=== PATIENT | male | born 1950 | race Caucasian/White ===

== ENCOUNTER 2017-04-28 14:01 | Inpatient (IN) ==
--- NOTE | 2017-04-28 14:10 | Emergency Department Note ---
Disposition Clinical Impression: Chest pain Qualifiers: Chest pain type: unspecified Qualified Code(s): R07.9 - Chest pain, unspecified Disposition: Admitted As Inpatient Condition: Fair Time of Disposition: 16:48 Chest Pain HPI - General Chief Complaint: ED Chest Pain Stated Complaint: CP Time Seen by Provider: 04/28/17 14:05 Source: patient Mode of arrival: EMS Limitations: no limitations Vital Signs Reviewed: Yes Nursing Notes Reviewed: Yes - History of Present Illness HPI Narrative: Patient is a 67-year-old male who presents to [facility] ED via EMS from the [place] [facility] facility for chief complaint of chest pain. States his symptoms started approximately 45 minutes ago. States it was like a sharp stabbing pain in his left arm that radiated down his arm. It then radiated into his left chest. Denies any nausea, vomiting, fever or chills. No diaphoresis. No difficulty breathing. Past medical history significant for CAD , hypertension, GERD. Patient does state he has had 3 prior heart attacks but no stents were placed at the time because they said he was "too old". Patient was given 2 baby aspirin and a nitroglycerin at the [place]. Pt complaint: chest pain Onset (ago): minute(s) Duration: constant Onset: during rest Pain Location: left chest Severity: moderate Quality: aching, sharp Pain Radiation: LUE Improves with: nothing Worsens with: palpation Associated symptoms: Reports: cough (With sputum production that is yellow). Denies: nausea, vomiting, diaphoresis, dyspnea, fever Treatments prior to arrival chest pain: aspirin, nitroglycerin - Related Data Home Medications Medication Instructions Recorded Confirmed Albuterol Sulfate [Albuterol 2 puff IH QID PRN 04/28/17 04/28/17 Inhaler] Ammonium Lactate [Luz-Hydrolac] 1 appl TP DAILY 04/28/17 04/28/17 Aspirin Enteric Coated [Aspirin EC] 81 mg PO DAILY 04/28/17 04/28/17 Atorvastatin [Lipitor] 40 mg PO HS 04/28/17 04/28/17 Budesonide/Formoterol 160/4.5 2 puff IH BIDR 04/28/17 04/28/17 [Symbicort 160/4.5] Calcipotriene [Dovonex] 1 appl TP BID 04/28/17 04/28/17 Clobetasol Propionate 0.05% 1 appl TP DAILY 04/28/17 04/28/17 [Temovate] Ergocalciferol (VITAMIN D2) 50,000 unit PO QWEEK 04/28/17 04/28/17 [Vitamin D2] Ipratropium/Albuterol Neb [Duoneb] 3 ml IH QID PRN 04/28/17 04/28/17 Ipratropium/Albuterol Sulfate 1 puff IH QID PRN 04/28/17 04/28/17 [Combivent Respimat Inhal [place]] Lidocaine 4% CRM (LMX) [Lmx 4] 1 appl TP BID 04/28/17 04/28/17 Lisinopril 2.5 mg PO DAILY 04/28/17 04/28/17 Metoprolol XL (24 HR) Succ [Toprol 25 mg PO DAILY 04/28/17 04/28/17 XL] Alvarez/Poly/Sonya OINT [Triple 1 appl TP DAILY 04/28/17 04/28/17 Antibiotic Ointment] Omeprazole [PriLOSEC] 40 mg PO BID 04/28/17 04/28/17 Pregabalin [Lyrica] 300 mg PO BID 04/28/17 04/28/17 Allergies Allergy/AdvReac Type Severity Reaction Status Date / Time haloperidol [From Haldol] AdvReac Seizure Verified 04/28/17 15:15 morphine AdvReac Difficulty Verified 04/28/17 15:15 Breathing All systems ED: reviewed and negative except as stated. Chest Pain PMH - Past Medical History Medical history: Reports: COPD, coronary artery disease, GERD, hypertension - Social History Smoking Status: Current every day smoker Smokeless Tobacco Status: No Physical Exam - General Limitations: no limitations General appearance: alert, anxious - Head Head exam: atraumatic, normocephalic, normal inspection - Eye Eye exam: Present: normal appearance, PERRL, EOMI - ENT ENT exam: normal exam, normal oropharynx, mucous membranes moist - Neck Neck exam: Present: normal inspection, full ROM, trachea midline - Chest Chest inspection: Present: normal inspection, symmetric chest wall rise, tenderness (To palpation in left chest) - Respiratory Respiratory exam: Present: normal lung sounds bilaterally - Cardiovascular Cardiovascular exam: Present: regular rate, normal rhythm, normal heart sounds - Abdominal Exam Abdominal exam: Present: soft, Non-Tender. Absent: tenderness, distention, guarding, rebound, rigidity - Extremities Exam Extremities exam: Present: normal inspection, full ROM. Absent: tenderness, pedal edema - Back Exam Back exam: Present: normal inspection - Neurological Exam Neurological exam: Present: alert - Psychiatric Psychiatric exam: Present: normal affect, normal mood - Skin Skin exam: Present: warm, dry, intact, normal color Course Course Narrative: Patient seen and examined. Chest pain onset approximately 45 minutes ago. No acute distress. Vital signs stable. EKG shows prior inferior [place]. No ST elevation or depression. We will do cardiopulmonary workup. - Reevaluation(s) Reevaluation #1: Patient's labwork unremarkable. BNP is mildly elevated. His chest x-ray and rest sounds are clear bilaterally. Patient appears very comfortable at this time. Still complaining of shoulder pain. We will give a shot of Toradol. This pain is completely reproducible, we feel this is more likely musculoskeletal pain. We will repeat a troponin at 4 hours Time: 15:21 Reevaluation #2: Patient's pain not relieved by the Toradol. Complaining of worsening chest pain that goes up the neck. Repeat EKG does not show any worsening signs of ST elevation or depression. This time, we will go ahead and admit for chest pain, rule out ACS. I spoke with hospitalist who has accepted patient for admission. Time: 16:47 Vital Signs Temperature 97.6 F 04/28/17 14:02 Pulse Rate 81 04/28/17 14:02 Respiratory Rate 20 04/28/17 14:02 Blood Pressure 131/83 04/28/17 14:02 O2 Sat by Pulse Oximetry 97 04/28/17 14:02 Temperature 97.6 F 04/28/17 14:02 Pulse Rate 68 04/28/17 16:29 Respiratory Rate 16 04/28/17 16:29 Blood Pressure 141/86 04/28/17 16:29 O2 Sat by Pulse Oximetry 96 04/28/17 16:29 Oxygen Delivery Oxygen Delivery Nasal Cannula Chest Pain - Medical Records Medical records reviewed: Yes I reviewed the patient's medical records. - Lab Data Lab results reviewed: Yes I reviewed the patient's lab results. Result diagrams: 04/28/17 14:20 04/28/17 14:20 Lab Results 04/28/17 04/28/17 04/28/17 Range/Units 14:20 14:20 14:20 WBC 8.6 (4.3-11.1) K/mcL RBC 5.27 (4.19-5.50) M/mcL Hgb 10.2 L (12.9-16.9) g/dL Hct 36.9 L (37.5-50.1) % MCV 70.0 L (83.0-100.0) fL MCH 19.4 L (28.0-33.3) pg MCHC 27.6 L (31.6-35.5) g/dL RDW 21.5 H (11.5-14.5) % Plt Count 348 (140-400) K/mcL MPV 9.4 (9.4-12.4) fL Immature Gran % 0.3 (0-4) % Seg Neutrophils % 63.3 % Lymphocytes % 22.0 % Monocytes % 9.7 % Eosinophils % 4.1 % Basophils % 0.6 % Neutrophils # 5.4 (1.6-8.9) K/mcL Lymphocytes # 1.9 (0.6-4.6) K/mcL Monocytes # 0.8 (0.0-1.3) K/mcL Eosinophils # 0.4 (0.0-0.6) K/mcL Basophils # 0.1 (0.0-0.2) K/mcL Platelet Estimate Normal (Normal) Hypochromasia Present A (Not Present) PT 11.5 (9.4-12.1) Seconds INR 1.1 APTT 30.6 (26.0-36.0) Seconds Sodium (136-145) mEq/L Potassium (3.5-4.5) mEq/L Chloride (98-109) mEq/L Carbon Dioxide (19-29) mEq/L BUN (8-26) mg/dL Creatinine (0.72-1.25) mg/dL Est GFR ( Amer) (> 60) Est GFR (Non-Af Amer) (> 60) BUN/Creatinine Ratio (6-26) Glucose (70-99) mg/dL Calculated Osmolality (280-300) Calcium (8.6-10.8) mg/dL Troponin I (0-0.03) ng/mL B-Natriuretic Peptide 156 H (0-100) pg/mL 04/28/17 04/28/17 Range/Units 14:20 14:20 WBC (4.3-11.1) K/mcL RBC (4.19-5.50) M/mcL Hgb (12.9-16.9) g/dL Hct (37.5-50.1) % MCV (83.0-100.0) fL MCH (28.0-33.3) pg MCHC (31.6-35.5) g/dL RDW (11.5-14.5) % Plt Count (140-400) K/mcL MPV (9.4-12.4) fL Immature Gran % (0-4) % Seg Neutrophils % % Lymphocytes % % Monocytes % % Eosinophils % % Basophils % % Neutrophils # (1.6-8.9) K/mcL Lymphocytes # (0.6-4.6) K/mcL Monocytes # (0.0-1.3) K/mcL Eosinophils # (0.0-0.6) K/mcL Basophils # (0.0-0.2) K/mcL Platelet Estimate (Normal) Hypochromasia (Not Present) PT (9.4-12.1) Seconds INR APTT (26.0-36.0) Seconds Sodium 138 (136-145) mEq/L Potassium 4.4 (3.5-4.5) mEq/L Chloride 107 (98-109) mEq/L Carbon Dioxide 23 (19-29) mEq/L BUN 21 (8-26) mg/dL Creatinine 0.95 (0.72-1.25) mg/dL Est GFR ( Amer) > 60 (> 60) Est GFR (Non-Af Amer) > 60 (> 60) BUN/Creatinine Ratio 22 (6-26) Glucose 135 H (70-99) mg/dL Calculated Osmolality 291 (280-300) Calcium 9.2 (8.6-10.8) mg/dL Troponin I 0.00 (0-0.03) ng/mL B-Natriuretic Peptide (0-100) pg/mL - Radiology Data Radiology results reviewed: Yes I reviewed the patient's radiology results. Chest X-Ray 04/28/17 14:05 IMPRESSION: 1. No acute cardiopulmonary process. 2. Mild emphysema. D/ / 04/28/2017 14:40:05 Lane Boykin MD / [email or web address] Interpreting Provider: Lane Boykin MD - EKG Data EKG attestation: Yes I reviewed and interpreted this EKG. EKG results narrative: EKG done at 1412 shows normal sinus rhythm with a rate of [address] elevation or depression. Prominent T waves noted in anterior leads. Normal axis. Prominent Q waves in leads 2, 3, aVF to suggest old inferior [place]. EKG done at 1626 shows normal sinus rhythm with a rate of [address] elevation or depression. Prominent Q waves noted in leads 2, 3, aVF. Normal axis. Heart Score - Score History: Slightly Suspicious EKG: Normal Age: 45-65 Risk Factors: 1-2 risk factors Troponin: Less than normal limit HEART Score Total: 2 Attestation Statement - Attestation Attestation: Patient was seen with resident physician. I reviewed the history, physical, assessment and plan, and agree with the findings. I also personally evaluated this patient and had [id number] time with this patient. 67-year-old male presents to the emergency department with left shoulder and arm pain and left chest pain started approximately 1 hour prior to arrival. Patient staying at the psychiatric area of the [facility], and he developed his symptoms. He notes that the pain is similar in nature to when he had an infection in his shoulder, but he did not have the chest pain at that time. He said the pain started the shoulder again developed into the chest type pain which is sharp in nature. Patient has a history of [place] in October. He said it was a sound mind he did not know that he had one. His complaint was of some shortness of breath and he thought he might of had pneumonia. He denies fevers or chills this time and no specific injury. I examination vital signs are stable. ENT is unremarkable. Heart and lungs are both normal. Patient's chest is tender to palpation which reproduces some of the symptoms as is his left shoulder. He does have a wound there which appears clean and intact. Abdomen is soft and nontender. Extremities unremarkable. Neurologically patient is intact. ED course we will do a initial workup for cardiac and pulmonary causes of his symptoms. We did give some initial thought to doing a four-hour troponin is many of his discomforts seem to be related to musculoskeletal issues. However during his stay the patient had another episode of left-sided chest pain that radiated up into his neck. A repeat EKG at that time much like the initial EKG did not show any acute ischemic changes however. Patient was treated with nitroglycerin on the emergency department. Because of his positive cardiac history and is continuation of pain as well as the changing of the type of pain. Patient will be admitted to the hospital for further evaluation and treatment. He remained hemodynamically stable while in the emergency department. The hospitalist was notified as the need for admission. I agree with the resident physician assessment and plan.
[2017-04-28 14:30] LABS: Basophils % 0.6 %; Hemoglobin 10.2 g/dL (12.9-16.9)
[2017-04-28 14:32] LABS: Basophils # 0.1 K/mcL (0.0-0.2); Eosinophils # 0.4 K/mcL (0.0-0.6); Eosinophils % 4.1 %; Hematocrit 36.9 % (37.5-50.1); Immature Granulocytes % 0.3 % (0-4); Lymphocytes # 1.9 K/mcL (0.6-4.6); Mean Corpuscular HGB Conc 27.6 g/dL (31.6-35.5); Mean Corpuscular Hemoglobin 19.4 pg (28.0-33.3); Mean Platelet Volume 9.4 fL (9.4-12.4); Monocytes # 0.8 K/mcL (0.0-1.3); Monocytes % 9.7 %; Neutrophils # 5.4 K/mcL (1.6-8.9); Platelet Count 348 K/mcL (140-400); Red Blood Count 5.27 M/mcL (4.19-5.50); Red Cell Distribution Width 21.5 % (11.5-14.5); Segmented Neutrophils % 63.3 %
[2017-04-28 14:41] LABS: INR 1.1; Prothrombin Time 11.5 Seconds (9.4-12.1)
[2017-04-28 14:44] LABS: Activated Partial Thrombo Time 30.6 Seconds (26.0-36.0)
[2017-04-28 14:45] LABS: BUN/Creatinine Ratio 22 (6-26); Blood Urea Nitrogen 21 mg/dL (8-26); Calcium 9.2 mg/dL (8.6-10.8); Carbon Dioxide 23 mEq/L (19-29); Chloride 107 mEq/L (98-109); Glucose 135 mg/dL (70-99); Osmolality,Calculated 291 (280-300); Potassium 4.4 mEq/L (3.5-4.5); Sodium 138 mEq/L (136-145); eGFR For African Americans > 60 (> 60); eGFR For Non-African Americans > 60 (> 60)
[2017-04-28 15:02] LABS: Hypochromasia Present (Not Present); Platelet Estimate Normal (Normal)
[2017-04-28] MEDS ORDERED: *HR* Morphine 2 MG/ML SYRINGE IVP ONE (15:05)
[2017-04-28] MEDS ORDERED: Ondansetron 4 MG/2 ML VIAL IVP ONE (15:05)
[2017-04-28] MEDS ORDERED: Ketorolac 15 MG/ML VIAL IVP ONE (15:19)
[2017-04-28] MEDS: Nitroglycerin 0.4 MG TAB.SUBL SL PRN (16:31)
[2017-04-28] MEDS ORDERED: Naloxone 0.4 MG/ML INJ IVP PRN (19:45)
[2017-04-28] MEDS ORDERED: Ondansetron 4 MG/2 ML VIAL IVP PRN (19:45)
--- NOTE | 2017-04-28 20:33 | Internal Med History&Physical ---
<Jacob Clark - Last Filed: 04/28/17 21:43> Date of Encounter: 04/28/17 Time of Encounter: 19:30 Assessment and Plan (1) Chest pain Current visit: Yes Status: Acute Patient presents with chief complaint of left-sided chest pain. Patient was transferred from the [facility] facility with CP symptoms that started while he was there. He describes pain as sharp, stabbing, intermittent pain that radiated to his left shoulder and down his left arm. Patient denies any accompanying diaphoresis or shortness of breath with CP. He states these symptoms are a recent onset for him. Echocardiogram ordered. Will consider cardiology consult and nuclear pharm stress test based on echocardiogram results. Continuous cardiac telemetry ordered. Nitroglycerin PRN. Continue aspirin therapy and patient's HTN medications. Qualifiers: Chest pain type: other chest pain Qualified Code(s): R07.89 - Other chest pain; R07.8 - Other chest pain (2) Suicidal ideation Current visit: Yes Status: Acute Patient presents with history of two suicide attempts with the most recent attempt being this past Saturday. Patient states that he was experiencing extremely bad back pain and wanted to kill himself. Patient states during examination that he no longer wants to kill himself at this time due to his daughter asking him not to. Sitter ordered. Psychiatric consult ordered. 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 Patient does not currently take any meds for psychiatric care and should be assessed for this need during the psychiatric consult. (3) Wound with infection determined by examination Current visit: Yes Status: Acute Patient presents with wound to left ventral forearm caused by suicide attempt last Saturday. also has wound on left hand near the vein of thumb. Wound on left ventral forearm appears infected. Wound care consult ordered. Blood cultures were ordered 2. IV vancomycin ordered. (4) COPD (chronic obstructive pulmonary disease) Current visit: Yes Status: Chronic Patient presents with history of chronic obstructive pulmonary disease. Will order supplemental O2 with titration if SPO2 less than 92%, continuous SPO2 monitoring, DuoNebs ordered every 4. Monitor patient and vital signs for respiratory decline. Qualifiers: COPD type: unspecified COPD Qualified Code(s): J44.9 - Chronic obstructive pulmonary disease, unspecified (5) GERD (gastroesophageal reflux disease) Current visit: Yes Status: Chronic Patient presents with history of chronic gastroesophageal reflux disease. IV Zofran ordered when necessary. IV Protonix 40 mg daily ordered. Qualifiers: Esophagitis presence: esophagitis presence not specified Qualified Code(s) : K21.9 - Gastro-esophageal reflux disease without esophagitis (6) HTN (hypertension) Current visit: Yes Status: Chronic Patient presents with history of chronic hypertension. Continue patient's lisinopril and Lopressor. Monitor patient and vital signs. Qualifiers: Hypertension type: essential hypertension Qualified Code(s): I10 - Essential (primary) hypertension (7) HLD (hyperlipidemia) Current visit: Yes Status: Chronic Patient presents with history of chronic hyperlipidemia. Continue patient's Lipitor. Lipid panel ordered. Qualifiers: Hyperlipidemia type: pure hypercholesterolemia Qualified Code(s): E78.00 - Pure hypercholesterolemia, unspecified; E78.0 - Pure hypercholesterolemia (8) DVT prophylaxis Current visit: Yes Status: Acute Patient placed on DVT prophylaxis to admission protocol and current bedrest status. Heparin 5,000 units SQ Q12 ordered. Internal Medicine - H&P: HPI Chief complaint: Chest pain radiating to left shoulder/arm Admitted From: Emergency Dept Plans for Post Hospital Care: Home History of present illness: Mr. Corado is a 67 year old male who presents from the ED with chief complaint of left-sided chest pain. Patient was transferred from the [place] psych facility with CP symptoms that started while he was there. He describes pain as sharp, stabbing, intermittent pain that radiated to his left shoulder and down his left arm. Patient denies any accompanying diaphoresis or shortness of breath with CP. He states these symptoms are a recent onset for him. Mr. Corado denies any recent illness, fever, chills, nausea, vomiting, generalized weakness, or SOB. He reports he had two previous angioplasty procedures with placement of 2 stents. Patient has history of COPD, tobacco abuse (he reports smoking 1 1/2 PPD), CAD, GERD, hypertension, hyperlipidemia, degenerative disc disease, marijuana use, anxiety/depression, and dissociative identity disorder (he reports having three personalities). He also reports having a cough for the past three months with yellow sputum production. Patient is currently afebrile and WBC is 8.6. Patient is at high risk due to multiple risk factors (HTN, HLD, CAD) and previous history of MN and will be placed as inpatient with orders for a psychiatric consult, sitter due to recent suicide attempt, echocardiogram, continuous cardiac telemetry, supplemental O2 with titration if SpO2 <92%, continuous SpO2 monitoring, falls precautions/up-with- assist/bed rest with bed side commode due to unsteadiness related to severe back pain. Patient's initial labs suggest iron deficiency anemia so iron panel ordered. Wound on left arm from suicide attempt on Saturday appears to be infected so orders placed for blood cultures x2, wound care consult, and IV antibiotics. DuoNebs ordered Q4 for COPD. We will continue patient's home medications. Patient to be monitored closely for further signs of suicidal ideation, cardiac event, and respiratory distress. Time spent with patient >50 minutes. Past Med Surg Social Fam HX - Past Medical History Source: patient Medical history: COPD, coronary artery disease, GERD, hyperlipidemia, hypertension, myocardial infarction Psychiatric history: anxiety, depression, prior suicide attempt, previous psychiatric hospitalization, other (Reports having dissociative identity disorder with three personalities) - Past Surgical History Surgical History: angioplasty/stent (x2), orthopedic, other (Left shoulder surgery) - Social History Smoking Status: Current every day smoker Packs per day: 1 1/2 PPD Smokeless Tobacco Status: No Alcohol use: occasionally Drug use: marijuana Occupational status: disabled Current living situation: Home - Independent Activity Level: Uses cane/walker Recent Out of Country Travel Within the Last 8 Weeks: No Exposure or Possible Exposure to Illness During Travel: No - Family History Mother Race: Family Member Ethnicity: Non- Living Status: Age at : 69 Cause of : HD Hx Family Cardiac Disorders: Yes (HD) Hx Family Musculoskeletal Disorders: Yes (Degenerative disc disease) Father Race: Family Member Ethnicity: Non- Living Status: Age at : 83 Cause of : HD Hx Family Cardiac Disorders: Yes (HD, HTN, HLD) Brother Race: Family Member Ethnicity: Non- Living Status: Cause of : Unknown Sister Race: Family Member Ethnicity: Non- Living Status: Age at : 40 Cause of : DM complications Hx Family Endocrine Disorder: Yes (DM) Internal Medicine - H&P: Meds Albuterol Sulfate [Albuterol Inhaler] 2 puff IH QID PRN 04/28/17 [History] Ammonium Lactate [Luz-Hydrolac] 1 appl TP DAILY 04/28/17 [History] Aspirin Enteric Coated [Aspirin EC] 81 mg PO DAILY 04/28/17 [History] Atorvastatin [Lipitor] 40 mg PO HS 04/28/17 [History] Budesonide/Formoterol 160/4.5 [Symbicort 160/4.5] 2 puff IH BIDR 04/28/17 [ History] Calcipotriene [Dovonex] 1 appl TP BID 04/28/17 [History] Clobetasol Propionate 0.05% [Temovate] 1 appl TP DAILY 04/28/17 [History] Ergocalciferol (VITAMIN D2) [Vitamin D2] 50,000 unit PO QWEEK 04/28/17 [History] Ipratropium/Albuterol Neb [Duoneb] 3 ml IH QID PRN 04/28/17 [History] Ipratropium/Albuterol Sulfate [Combivent Respimat Inhal [place]] 1 puff IH QID PRN 04/28/17 [History] Lidocaine 4% CRM (LMX) [Lmx 4] 1 appl TP BID 04/28/17 [History] Lisinopril 2.5 mg PO DAILY 04/28/17 [History] Metoprolol XL (24 HR) Succ [Toprol XL] 25 mg PO DAILY 04/28/17 [History] Alvarez/Poly/Sonya OINT [Triple Antibiotic Ointment] 1 appl TP DAILY 04/28/17 [History ] Omeprazole [PriLOSEC] 40 mg PO BID 04/28/17 [History] Pregabalin [Lyrica] 300 mg PO BID 04/28/17 [History] Allergies haloperidol [From Haldol] Adverse Reaction (Verified 04/28/17 15:15) Seizure morphine Adverse Reaction (Verified 04/28/17 15:15) Difficulty Breathing All Systems PM: A 10-system review of systems was performed and is negative for pertinent findings except as documented above in the HPI. - Constitutional Constitutional: no chills, no fever(s), no night sweats - EENT Eyes: no change in vision, no discharge, no pain, no photophobia Ears: no ear discharge, no ear pain, no tinnitus Nose, mouth and throat: no dysphagia, no nasal discharge, no neck pain, no sore throat - Breasts Breasts: as per HPI - Cardiovascular Cardiovascular ROS IM: as per HPI, chest pain - Respiratory Respiratory: as per HPI, cough, change in phlegm color - Gastrointestinal Gastrointestinal: no abdominal pain, no diarrhea, no hematemesis, no hematochezia, no melena, no nausea, no vomiting - Genitourinary Genitourinary ROS male: as per HPI, urinary incontinence - Musculoskeletal Musculoskeletal ROS IM: no numbness, no tingling - Integumentary Integumentary IM: as per HPI, other (Psoriatic lesions on UE, LE, stomach, and back) - Neurological Neurological ROS: no confusion, no convulsions, no focal weakness, no numbness, no tingling, no tremor(s) - Psychiatric Psychiatric: as per HPI, anxiety, depression, suicidal ideation - Endocrine Endocrine IM: as per HPI - Hematologic/Lymphatic Hematologic/Lymphatic: no easy bruising - Allergic/Immunologic Allergic/Immunologic: as per HPI - Constitutional Vitals: Temp Pulse Resp BP Pulse Ox 97.5 F L 62 15 132/80 94 04/28/17 19:04 04/28/17 19:04 04/28/17 19:04 04/28/17 19:04 04/28/17 19:04 General appearance: Present: cooperative, disheveled, A&O X 2, pleasant, no acute distress, answers questions appropriately - Head Head exam: Present: atraumatic, normocephalic - Eye Eye exam: Present: PERRL, conjuntiva pink, sclera anicteric Pupils: Present: PERRL - ENT ENT exam: Present: normal exam, normal external ear exam - Neck Neck exam general surgery: Present: supple, trachea midline. Absent: lymphadenopathy - Respiratory Respiratory exam: Present: CTAB. Absent: accessory muscle use, rales, rhonchi, wheezes - Cardiovascular Cardiovascular exam: Present: RRR, +S1, +S2. Absent: diastolic murmur, gallop, rubs, systolic murmur - GI/Abdominal GI/Abdominal exam: Present: normal bowel sounds, soft, no peritoneal signs. Absent: distended, tenderness - Rectal Rectal exam: Present: deferred - Additional comments: exam deferred. - Extremities Exam Extremities exam: Present: warm, radial pulses palpable and symetrical. Absent : calf tenderness, cyanotic, pedal edema - Back Exam Back exam: Present: normal inspection - Neurological Exam Neurological exam: Present: alert, reflexes normal, strengths equal and symetr throughout - Psychiatric Psychiatric exam: Present: normal affect, normal mood Additional comments: Patient states that he attempted suicide Saturday by cutting his left ventral forearm and vein located by his left thumb. Left forearm has several stitches and appears erythematous, edematous, and warm. Patient describes area as painful. - Skin Additional comments: Patient has psoriatic lesions on his UE, LE, stomach, and back. Internal Med - H&P Results - Labs CBC & Chem 7: 04/28/17 14:20 04/28/17 14:20 - EKG Data EKG shows normal: sinus rhythm - EKG Data EKG comments: 04/28/17 20:52 EKG dated 04/28/17 13:12:46 from the [place] shows sinus rhythm with inferior infarct , age undetermined. EKG dated 04/28/17 13:13:16 from the [place] shows sinus rhythm with occasional premature ventricular complexes, inferior infarct of undetermined age. EKG dated 04/28/17 14:12:55 from [place] shows sinus rhythm with inferior myocardial infarction, probably old. EKG dated 04/28/17 16:26:07 from [place] shows sinus rhythm with minimal voltage criteria for LVH, consider normal variant, inferior myocardial infarction ( probably old). - Diagnostic Studies Chest x-ray Additional comments: Impressions Chest X-Ray 04/28/17 14:05 IMPRESSION: 1. No acute cardiopulmonary process. 2. Mild emphysema. D/ / 04/28/2017 14:40:05 [address] Boykin MD / [email or web address] Interpreting Provider: Lane Boykin MD <Andry Whitten - Last Filed: 04/28/17 22:32> Date of Encounter: 04/28/17 Internal Medicine - H&P: HPI History of present illness: Mr. Corado is a 67 year old male All Systems PM: A 10-system review of systems was performed and is negative for pertinent findings except as documented above in the HPI. - Constitutional Vitals: Temp Pulse Resp BP Pulse Ox 97.5 F L 62 15 132/80 94 04/28/17 19:04 04/28/17 19:04 04/28/17 19:04 04/28/17 19:04 04/28/17 19:04 Internal Med - H&P Results - Labs CBC & Chem 7: 04/28/17 14:20 04/28/17 14:20 Labs: Cardiac Enzymes 04/28/17 Range/Units 20:32 Troponin I 0.01 (0-0.03) ng/mL - Attending Attestation I have seen and examined the patient around 8:15 PM. I have discussed about the patient with nurse practitioner Jacob Clark. I have reviewed the orders and the note. Patient is a 67-year-old male with a history of a COPD, coronary artery disease, hyperlipidemia, hypertension, GERD, anxiety, depression , prior suicide attempt and previous psych hospitalization. He presents to the ED with complaints of chest pain. He was transferred from the [place] psych facility with chest pain symptoms. Patient described the pain as sharp stabbing intermittent radiating to left shoulder and down his left arm. No other associated symptoms. Patient has had 2 stents placed in the past. Patient smokes about a pack and a half of cigarettes a day. EKG does not show any acute ST-T changes and troponin is negative. We will trend troponin and echocardiogram is pending. We will continue aspirin and statin. Patient apparently had a recent suicidal attempt and has been in the psych facility. He he seems to cut his left ventricle forearm. This seems infected. We will need IV antibiotics. Patient does not have any active suicidal ideation. Psych consult ordered. On examination patient is awake and alert. He is pleasant, not in any acute distress. Able to provide all history. No family members at bedside. Patient has been explained about his condition and plan of care. Understood and agreed. No unanswered questions. CODE STATUS - DO NOT RESUSCITATE DO NOT INTUBATE. Heart rate 62, blood pressure 132/80, O2 sat 94% on room air, heart S1-S2 positive, lungs bilateral good entry with no wheezing or crackles, abdomen soft nontender, extremities all pulses palpable no edema.
[2017-04-28] MEDS: Pantoprazole 40 MG VIAL IVP SCH (21:00)
[2017-04-28 21:30] LABS: Amphetamine Screen,Urine Negative ng/mL (Cutoff=1000); Barbiturate Screen,Urine Negative ng/mL (Cutoff=200); Benzodiazepines Screen,Urine Negative ng/mL (Cutoff=200); Cannabinoid Screen,Urine Negative ng/mL (Cutoff = 50); Cocaine Screen,Urine Negative ng/mL (Cutoff= 300); Opiate Screen,Urine Negative ng/mL (Cutoff=300); Phencyclidine Screen,Urine Negative ng/mL (Cutoff=25)
[2017-04-28] MEDS ORDERED: Ketorolac 15 MG/ML VIAL IVP PRN (21:41)
[2017-04-28] MEDS ORDERED: Vancomycin 750 MG in D5% in Water 250 ML IVPB SCH (22:00)
[2017-04-28] MEDS: Pregabalin 75 MG CAPSULE PO SCH (22:22)
[2017-04-28] MEDS: Vancomycin 1,250 MG in D5% in Water 250 ML IVPB SCH (22:24)
[2017-04-28] MEDS: Lidocaine 4% CREAM (LMX) 5 GM TP SCH (22:31)
[2017-04-28] MEDS: (Calcipotriene [Dovonex] 1 APPL) TP SCH (22:33)
[2017-04-28] MEDS: Ipratropium/Albuterol Neb 3 ML IH SCH (23:29)
[2017-04-28] MEDS: Budesonide/Formoterol 160/4.5 MDI IH SCH (23:29)
[2017-04-29] MEDS: Acetaminophen 325 MG TABLET PO PRN (01:03)
[2017-04-29] MEDS ORDERED: *HR* OxyCODONE/APAP 5/325 TABLET PO PRN (01:39)
[2017-04-29 03:34] LABS: Basophils % 0.3 %
[2017-04-29 03:36] LABS: Eosinophils # 0.3 K/mcL (0.0-0.6); Eosinophils % 2.3 %; Hematocrit 33.4 % (37.5-50.1); Hemoglobin 9.3 g/dL (12.9-16.9); Immature Granulocytes % 0.3 % (0-4); Lymphocytes # 1.4 K/mcL (0.6-4.6); Lymphocytes % 11.5 %; Mean Corpuscular HGB Conc 27.8 g/dL (31.6-35.5); Mean Corpuscular Hemoglobin 19.3 pg (28.0-33.3); Mean Corpuscular Volume 69.3 fL (83.0-100.0); Mean Platelet Volume 9.8 fL (9.4-12.4); Monocytes % 8.5 %; Neutrophils # 9.4 K/mcL (1.6-8.9); Platelet Count 323 K/mcL (140-400); Red Blood Count 4.82 M/mcL (4.19-5.50); Red Cell Distribution Width 21.2 % (11.5-14.5); Segmented Neutrophils % 77.1 %
[2017-04-29] MEDS: Nitroglycerin 0.4 MG TAB.SUBL SL PRN (03:38)
[2017-04-29 03:48] LABS: BUN/Creatinine Ratio 29 (6-26); Blood Urea Nitrogen 27 mg/dL (8-26); Calcium 8.9 mg/dL (8.6-10.8); Carbon Dioxide 24 mEq/L (19-29); Chloride 105 mEq/L (98-109); Cholesterol 121 mg/dL (< 200); Glucose 119 mg/dL (70-99); HDL Cholesterol 30 mg/dL (40-59); LDL Cholesterol,Calculated 65 mg/dL (0-99); Osmolality,Calculated 288 (280-300); Potassium 4.2 mEq/L (3.5-4.5); Sodium 136 mEq/L (136-145); Triglycerides 130 mg/dL (< 150); eGFR For African Americans > 60 (> 60); eGFR For Non-African Americans > 60 (> 60)
[2017-04-29] MEDS: Ipratropium/Albuterol Neb 3 ML IH SCH ×6 (04:01→23:13)
[2017-04-29 04:02] LABS: Anisocytosis 3+ (Not Present); Hypochromasia Present (Not Present); Macrocytosis Present (Not Present); Microcytosis Present (Not Present)
[2017-04-29 04:03] LABS: Large Platelets Present (Not Present); Platelet Estimate Normal (Normal)
[2017-04-29 04:33] LABS: % Iron Saturation 5 % (20-55); Iron 19 mcg/dL (65-175); Transferrin 255 mg/dL (174-364)
[2017-04-29] MEDS: *HR* Heparin 5,000 UNIT/ML VIAL SQ SCH ×2 (06:16→16:35)
[2017-04-29] MEDS: Budesonide/Formoterol 160/4.5 MDI IH SCH ×2 (08:00→19:34)
[2017-04-29] MEDS: Nicotine 14 MG PATCH.TD24 TD SCH (08:19)
[2017-04-29] MEDS: Pantoprazole 40 MG VIAL IVP SCH (08:20)
[2017-04-29] MEDS: (Calcipotriene [Dovonex] 1 APPL) TP SCH ×2 (08:20→20:31)
[2017-04-29] MEDS: Aspirin Enteric Coated 81 MG Tablet PO SCH (08:20)
[2017-04-29] MEDS: Metoprolol XL (24 HR) Succ 25 MG TAB.ER.24H PO SCH (08:20)
[2017-04-29] MEDS: Neosporin OINT 15 GM TUBE TP SCH (08:21)
[2017-04-29] MEDS: Ammonium Lactate 30 APPL/225 GM BOTTLE TP SCH (08:21)
[2017-04-29] MEDS: Lidocaine 4% CREAM (LMX) 5 GM TP SCH ×2 (08:21→20:31)
[2017-04-29] MEDS: Pregabalin 75 MG CAPSULE PO SCH ×2 (08:27→20:31)
[2017-04-29] MEDS: Vancomycin 1,250 MG in D5% in Water 250 ML IVPB SCH ×2 (10:00→23:32)
[2017-04-29] MEDS: *HR* OxyCODONE/APAP 5/325 TABLET PO PRN ×3 (10:01→23:32)
[2017-04-29] MEDS ORDERED: Regadenoson 0.4 MG/5 ML SYRINGE IVP ONE (12:04)
--- NOTE | 2017-04-29 13:03 | Internal Med Progress Note ---
<Roger Llamas - Last Filed: 04/29/17 13:00> Date of Encounter: 04/29/17 Time of Encounter: 13:01 - Assessment and plan (1) Chest pain Current Visit: Yes Status: Acute Assessment and plan: Patient is chest pain-free at this time. EKG is unremarkable, troponins as far been negative. We will obtain cardiac stress test in the morning. Qualifiers: Chest pain type: other chest pain Qualified Code(s): R07.89 - Other chest pain; R07.8 - Other chest pain (2) Suicidal ideation Current Visit: Yes Status: Acute Assessment and plan: Patient denies suicidal ideation at this time but did state that on Saturday he was suicidal and attempted by cutting himself on the forearm. Patient reports that he sees a psychiatrist at the [place] and will be following up with them soon. Psychiatry was consulted by the admitting team. (3) COPD (chronic obstructive pulmonary disease) Current Visit: Yes Status: Chronic Assessment and plan: Stable. No evidence of acute exacerbation. Continue home medications. Qualifiers: COPD type: unspecified COPD Qualified Code(s): J44.9 - Chronic obstructive pulmonary disease, unspecified (4) GERD (gastroesophageal reflux disease) Current Visit: Yes Status: Chronic Assessment and plan: Stable. Continue PPI. Qualifiers: Esophagitis presence: esophagitis presence not specified Qualified Code(s) : K21.9 - Gastro-esophageal reflux disease without esophagitis (5) HTN (hypertension) Current Visit: Yes Status: Chronic Assessment and plan: Blood pressure under good control. Continue home medications. Qualifiers: Hypertension type: essential hypertension Qualified Code(s): I10 - Essential (primary) hypertension (6) HLD (hyperlipidemia) Current Visit: Yes Status: Chronic Assessment and plan: Continue statin. Qualifiers: Hyperlipidemia type: pure hypercholesterolemia Qualified Code(s): E78.00 - Pure hypercholesterolemia, unspecified; E78.0 - Pure hypercholesterolemia (7) DVT prophylaxis Current Visit: Yes Status: Acute Assessment and plan: Heparin 5000 units subcutaneous twice a day. - Subjective Interval history: Patient seen and examined at bedside. Patient denies chest pain at this time. He denies shortness of breath, diaphoresis. Patient reports that he was feeling suicidal on Saturday but denies any thoughts of hurting himself right now. He did report an attempt by cutting his forearm. - Constitutional Vitals: Temp Pulse Resp BP Pulse Ox 97.7 F 58 16 124/76 94 04/29/17 08:46 04/29/17 08:46 04/29/17 08:46 04/29/17 08:46 04/29/17 08:46 General appearance: Present: cooperative, A&O X 3, pleasant, no acute distress, answers questions appropriately - Respiratory Respiratory exam: Present: CTAB. Absent: rales, rhonchi, wheezes - Cardiovascular Cardiovascular exam: Present: RRR. Absent: gallop, rubs, systolic murmur - GI/Abdominal GI/Abdominal exam: Present: normal bowel sounds, soft. Absent: distended, tenderness - Extremities Exam Extremities exam: Present: warm. Absent: pedal edema, tenderness - Neurological Exam Neurological exam: Present: alert, CN II-XII intact, oriented X3, no focal deficits - Psychiatric Psychiatric exam: Absent: homicidal ideation, suicidal ideation Internal Medicine: Result - Labs CBC & Chem 7: 04/29/17 02:37 04/29/17 02:37 Labs: Short CBC 04/29/17 Range/Units 02:37 WBC 12.2 H (4.3-11.1) K/mcL Hgb 9.3 L (12.9-16.9) g/dL Hct 33.4 L (37.5-50.1) % Plt Count 323 (140-400) K/mcL Neutrophils # 9.4 H (1.6-8.9) K/mcL BMP 04/29/17 02:37 Sodium 136 Potassium 4.2 Chloride 105 Carbon Dioxide 24 BUN 27 H Creatinine 0.93 Glucose 119 H Calcium 8.9 Cardiac Enzymes 04/28/17 04/29/17 Range/Units 20:32 02:37 Troponin I 0.01 0.01 (0-0.03) ng/mL - ABG Interpretation ABG results: PT/INR, D-dimer PT 11.5 Seconds (9.4-12.1) 04/28/17 14:20 Consult Discharge Plan - Plan Referrals: NO,PCP [Primary Care Provider] - <Paul Rogers P - Last Filed: 04/29/17 17:37> Date of Encounter: 04/29/17 - Constitutional Vitals: Temp Pulse Resp BP Pulse Ox 97.1 F L 62 16 111/67 96 04/29/17 15:43 04/29/17 15:43 04/29/17 16:08 04/29/17 15:43 04/29/17 16:08 Internal Medicine: Result - Labs CBC & Chem 7: 04/29/17 02:37 04/29/17 02:37 - ABG Interpretation ABG results: PT/INR, D-dimer PT 11.5 Seconds (9.4-12.1) 04/28/17 14:20 - Attending Attestation I examined this patient and my medical decision-making was reviewed with the TELEPHONE LINEWORKER/PA/Advanced Practice Nurse/Resident Physician. I agree with the documented findings, disposition and treatment plan as described except to the extent set forth below.
--- NOTE | 2017-04-29 13:36 | Electrocardiograph Report ---
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
--- NOTE | 2017-04-29 13:40 | Electrocardiograph Report ---
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
--- NOTE | 2017-04-29 15:13 | Electrocardiograph Report ---
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
--- NOTE | 2017-04-29 15:45 | Consult Note ---
Date of Encounter: 04/29/17 Time of Encounter: 15:10 Assessment & Recommendation (1) Suicidal ideation Current visit: Yes Status: Acute Assessment & Recommendation: 1. From psychiatric standpoint patient is not suicidal and can be discharged when medically stable 2. Psychiatric follow-up at the [facility] as scheduled. Thank you for consultation History of Present Illness Patient: new to practice Requesting Physician: Kim Gilbert CNP Reason for consult: Suicidal ideation History of present illness: Mr. Corado is a 67 year old male admitted to the hospital for evaluation treatment of chest pain in addition to COPD, GERD, hypertension and hyperlipidemia. Psychiatric consultation was requested to evaluate suicidal ideation reported by the patient in the emergency room. Patient is a and receive psychiatric treatment at the [facility] for the past several years , is followed by a psychiatrist and scheduled for an appointment later this week. Patient denied that he attempted suicide and he cut himself so he can be taken by hospital and gets treatment for his back pain and breathing problems. CC: Kim Gilbert CNP Past Med Surg Social Fam HX - Past Medical History Medical history: COPD, coronary artery disease, GERD, hyperlipidemia, hypertension, myocardial infarction - Past Psychiatric History Psychiatric history: Reports: depression, previous psychiatric hospitalization Past psychiatric history details: Psychiatric treatment at the [facility] inpatient and outpatient - Past Surgical History Surgical History: angioplasty/stent (x2), orthopedic, other (Left shoulder surgery) - Social History Smoking Status: Current every day smoker Smokeless Tobacco Status: No Alcohol use: occasionally Drug use: marijuana - Family History Mother Race: Family Member Ethnicity: Non- Living Status: Age at : 69 Cause of : HD Hx Family Cardiac Disorders: Yes (HD) Hx Family Musculoskeletal Disorders: Yes (Degenerative disc disease) Father Race: Family Member Ethnicity: Non- Living Status: Age at : 83 Cause of : HD Hx Family Cardiac Disorders: Yes (HD, HTN, HLD) Brother Race: Family Member Ethnicity: Non- Living Status: Cause of : Unknown Sister Race: Family Member Ethnicity: Non- Living Status: Age at : 40 Cause of : DM complications Hx Family Endocrine Disorder: Yes (DM) Medications & Allergies Albuterol Sulfate [Albuterol Inhaler] 2 puff IH QID PRN 04/28/17 [History] Ammonium Lactate [Luz-Hydrolac] 1 appl TP DAILY 04/28/17 [History] Aspirin Enteric Coated [Aspirin EC] 81 mg PO DAILY 04/28/17 [History] Atorvastatin [Lipitor] 40 mg PO HS 04/28/17 [History] Budesonide/Formoterol 160/4.5 [Symbicort 160/4.5] 2 puff IH BIDR 04/28/17 [ History] Calcipotriene [Dovonex] 1 appl TP BID 04/28/17 [History] Clobetasol Propionate 0.05% [Temovate] 1 appl TP DAILY 04/28/17 [History] Ergocalciferol (VITAMIN D2) [Vitamin D2] 50,000 unit PO QWEEK 04/28/17 [History] Ipratropium/Albuterol Neb [Duoneb] 3 ml IH QID PRN 04/28/17 [History] Ipratropium/Albuterol Sulfate [Combivent Respimat Inhal [place]] 1 puff IH QID PRN 04/28/17 [History] Lidocaine 4% CRM (LMX) [Lmx 4] 1 appl TP BID 04/28/17 [History] Lisinopril 2.5 mg PO DAILY 04/28/17 [History] Metoprolol XL (24 HR) Succ [Toprol XL] 25 mg PO DAILY 04/28/17 [History] Alvarez/Poly/Sonya OINT [Triple Antibiotic Ointment] 1 appl TP DAILY 04/28/17 [History ] Omeprazole [PriLOSEC] 40 mg PO BID 04/28/17 [History] Pregabalin [Lyrica] 300 mg PO BID 04/28/17 [History] Allergies haloperidol [From Haldol] Adverse Reaction (Verified 04/28/17 15:15) Seizure morphine Adverse Reaction (Verified 04/28/17 15:15) Difficulty Breathing Mental Status Exam Patient orientation: Yes Person, Yes Time, Yes Place Level of alertness: Alert Patient appearance: Appropriate, Unkempt, Disheveled, Malodorous, Bizarre Behavior: cooperative, anxious, distractible Psychomotor activity: Normal Eye contact: Fleeting Contact Mood description: Anxious Affect description: congruent with mood, euthymic Speech pattern: Normal rate, Normal rhythm, Normal tone Speech volume: Normal Thought process: Linear, Goal Oriented Thought content: No Suicidal ideation, No Homicidal ideation, No Overt delusions Perceptual disturbances: No Auditory hallucinations, No Visual hallucinations Attention span: Capable of Focused Attention Memory description: Grossly Intact Patient reliability: Reliable Historian Intelligence estimate: Average Judgment: Limited Insight: Partial Results - Vital Signs Vital signs: Temp Pulse Resp BP Pulse Ox 97.7 F 58 16 124/76 94 04/29/17 08:46 04/29/17 08:46 04/29/17 08:46 04/29/17 08:46 04/29/17 08:46 - Drug Levels and Toxicology Drug Levels and Toxicology: Drug Levels and Toxicity 04/28/17 21:00 Urine Opiates Screen Negative Ur Barbiturates Screen Negative Ur Phencyclidine Scrn Negative Ur Amphetamines Screen Negative U Benzodiazepines Scrn Negative Urine Cocaine Screen Negative U Marijuana (THC) Screen Negative - Labs Labs: Laboratory Last Values WBC 12.2 K/mcL (4.3-11.1) H 04/29/17 02:37 RBC 4.82 M/mcL (4.19-5.50) 04/29/17 02:37 Hgb 9.3 g/dL (12.9-16.9) L 04/29/17 02:37 Hct 33.4 % (37.5-50.1) L 04/29/17 02:37 MCV 69.3 fL (83.0-100.0) L 04/29/17 02:37 MCH 19.3 pg (28.0-33.3) L 04/29/17 02:37 MCHC 27.8 g/dL (31.6-35.5) L 04/29/17 02:37 RDW 21.2 % (11.5-14.5) H 04/29/17 02:37 Plt Count 323 K/mcL (140-400) 04/29/17 02:37 MPV 9.8 fL (9.4-12.4) 04/29/17 02:37 Immature Gran % 0.3 % (0-4) 04/29/17 02:37 Seg Neutrophils % 77.1 % 04/29/17 02:37 Lymphocytes % 11.5 % 04/29/17 02:37 Monocytes % 8.5 % 04/29/17 02:37 Eosinophils % 2.3 % 04/29/17 02:37 Basophils % 0.3 % 04/29/17 02:37 Neutrophils # 9.4 K/mcL (1.6-8.9) H 04/29/17 02:37 Lymphocytes # 1.4 K/mcL (0.6-4.6) 04/29/17 02:37 Monocytes # 1.0 K/mcL (0.0-1.3) 04/29/17 02:37 Eosinophils # 0.3 K/mcL (0.0-0.6) 04/29/17 02:37 Basophils # 0.0 K/mcL (0.0-0.2) 04/29/17 02:37 Platelet Estimate Normal (Normal) 04/29/17 02:37 Large Platelets Present (Not Present) A 04/29/17 02:37 Hypochromasia Present (Not Present) A 04/29/17 02:37 Anisocytosis 3+ (Not Present) A 04/29/17 02:37 Microcytosis Present (Not Present) A 04/29/17 02:37 Macrocytosis Present (Not Present) A 04/29/17 02:37 PT 11.5 Seconds (9.4-12.1) 04/28/17 14:20 INR 1.1 04/28/17 14:20 APTT 30.6 Seconds (26.0-36.0) 04/28/17 14:20 Sodium 136 mEq/L (136-145) 04/29/17 02:37 Potassium 4.2 mEq/L (3.5-4.5) 04/29/17 02:37 Chloride 105 mEq/L (98-109) 04/29/17 02:37 Carbon Dioxide 24 mEq/L (19-29) 04/29/17 02:37 BUN 27 mg/dL (8-26) H 04/29/17 02:37 Creatinine 0.93 mg/dL (0.72-1.25) 04/29/17 02:37 Est GFR ( Amer) > 60 (> 60) 04/29/17 02:37 Est GFR (Non-Af Amer) > 60 (> 60) 04/29/17 02:37 BUN/Creatinine Ratio 29 (6-26) H 04/29/17 02:37 Glucose 119 mg/dL (70-99) H 04/29/17 02:37 POC Glucose 160 (58-89) H 04/28/17 14:21 Calculated Osmolality 288 (280-300) 04/29/17 02:37 Lactic Acid 1.3 mmol/L (0.5-2.2) 04/29/17 10:12 Calcium 8.9 mg/dL (8.6-10.8) 04/29/17 02:37 Iron 19 mcg/dL (65-175) L 04/29/17 02:37 % Saturation 5 % (20-55) L 04/29/17 02:37 Transferrin 255 mg/dL (174-364) 04/29/17 02:37 Troponin I 0.01 ng/mL (0-0.03) 04/29/17 02:37 B-Natriuretic Peptide 156 pg/mL (0-100) H 04/28/17 14:20 Triglycerides 130 mg/dL (< 150) 04/29/17 02:37 Cholesterol 121 mg/dL (< 200) 04/29/17 02:37 LDL Cholesterol, Calc 65 mg/dL (0-99) 04/29/17 02:37 VLDL Cholesterol, Calc 26 mg/dL (< 31) 04/29/17 02:37 HDL Cholesterol 30 mg/dL (40-59) L 04/29/17 02:37 Cholesterol/HDL Ratio 4.0 (0-4.9) 04/29/17 02:37 Urine Opiates Screen Negative ng/mL (Ciqirk=301) 04/28/17 21:00 Ur Barbiturates Screen Negative ng/mL (Pytkne=592) 04/28/17 21:00 Ur Phencyclidine Scrn Negative ng/mL (Cutoff=25) 04/28/17 21:00 Ur Amphetamines Screen Negative ng/mL (Wvqyys=8274) 04/28/17 21:00 U Benzodiazepines Scrn Negative ng/mL (Xnqryw=930) 04/28/17 21:00 Urine Cocaine Screen Negative ng/mL (Cutoff= 300) 04/28/17 21:00 U Marijuana (THC) Screen Negative ng/mL (Cutoff = 50) 04/28/17 21:00 Consult Discharge Plan - Plan Referrals: NO,PCP [Primary Care Provider] -
[2017-04-30] MEDS: Acetaminophen 325 MG TABLET PO PRN ×2 (04:03→15:47)
[2017-04-30] MEDS: Ipratropium/Albuterol Neb 3 ML IH SCH ×6 (04:34→23:26)
[2017-04-30] MEDS: *HR* OxyCODONE/APAP 5/325 TABLET PO PRN ×3 (05:56→18:46)
[2017-04-30] MEDS: *HR* Heparin 5,000 UNIT/ML VIAL SQ SCH ×2 (05:57→17:40)
[2017-04-30] MEDS ORDERED: Regadenoson 0.4 MG/5 ML SYRINGE IVP ONE (06:14)
[2017-04-30] MEDS: Budesonide/Formoterol 160/4.5 MDI IH SCH ×2 (07:40→19:42)
[2017-04-30 08:32] LABS: BUN/Creatinine Ratio 19 (6-26); Blood Urea Nitrogen 17 mg/dL (8-26); Calcium 8.6 mg/dL (8.6-10.8); Carbon Dioxide 27 mEq/L (19-29); Chloride 104 mEq/L (98-109); Glucose 115 mg/dL (70-99); Osmolality,Calculated 286 (280-300); Potassium 4.3 mEq/L (3.5-4.5); Sodium 137 mEq/L (136-145); eGFR For African Americans > 60 (> 60); eGFR For Non-African Americans > 60 (> 60)
[2017-04-30 09:02] LABS: Basophils # 0.1 K/mcL (0.0-0.2); Basophils % 0.7 %; Eosinophils # 0.3 K/mcL (0.0-0.6); Eosinophils % 4.2 %; Hematocrit 31.7 % (37.5-50.1); Hemoglobin 8.8 g/dL (12.9-16.9); Immature Granulocytes % 0.3 % (0-4); Lymphocytes # 1.4 K/mcL (0.6-4.6); Lymphocytes % 19.9 %; Mean Corpuscular HGB Conc 27.8 g/dL (31.6-35.5); Mean Corpuscular Hemoglobin 19.3 pg (28.0-33.3); Mean Corpuscular Volume 69.7 fL (83.0-100.0); Mean Platelet Volume 10.2 fL (9.4-12.4); Monocytes # 0.9 K/mcL (0.0-1.3); Monocytes % 12.5 %; Neutrophils # 4.5 K/mcL (1.6-8.9); Platelet Count 311 K/mcL (140-400); Red Blood Count 4.55 M/mcL (4.19-5.50); Red Cell Distribution Width 21.2 % (11.5-14.5); Segmented Neutrophils % 62.4 %
[2017-04-30 10:25] LABS: Anisocytosis 1+ (Not Present); Hypochromasia Present (Not Present); Macrocytosis Present (Not Present); Microcytosis Present (Not Present)
[2017-04-30 10:26] LABS: Platelet Estimate Normal (Normal)
[2017-04-30] MEDS: Aspirin Enteric Coated 81 MG Tablet PO SCH (11:59)
[2017-04-30] MEDS: Pregabalin 75 MG CAPSULE PO SCH ×2 (11:59→22:01)
[2017-04-30] MEDS: Metoprolol XL (24 HR) Succ 25 MG TAB.ER.24H PO SCH (11:59)
[2017-04-30] MEDS: Nicotine 14 MG PATCH.TD24 TD SCH (12:00)
[2017-04-30] MEDS: Pantoprazole 40 MG VIAL IVP SCH (12:01)
[2017-04-30] MEDS: (Calcipotriene [Dovonex] 1 APPL) TP SCH (12:01)
[2017-04-30] MEDS: Vancomycin 1,250 MG in D5% in Water 250 ML IVPB SCH ×2 (13:36→22:08)
[2017-04-30] MEDS: Neosporin OINT 15 GM TUBE TP SCH (13:37)
[2017-04-30] MEDS: Ammonium Lactate 30 APPL/225 GM BOTTLE TP SCH (13:37)
[2017-04-30] MEDS: Lidocaine 4% CREAM (LMX) 5 GM TP SCH ×2 (13:37→22:12)
--- NOTE | 2017-04-30 13:45 | Discharge Summary ---
<Roger Llamas - Last Filed: 04/30/17 14:46> Date of Encounter: 04/30/17 Time of Encounter: 13:39 - Discharge Diagnosis (1) Chest pain Priority: Primary Status: Resolved Qualifiers: Chest pain type: other chest pain Qualified Code(s): R07.89 - Other chest pain; R07.8 - Other chest pain (2) Suicidal ideation Priority: Primary Status: Resolved (3) COPD (chronic obstructive pulmonary disease) Priority: Secondary Status: Chronic Qualifiers: COPD type: unspecified COPD Qualified Code(s): J44.9 - Chronic obstructive pulmonary disease, unspecified (4) GERD (gastroesophageal reflux disease) Priority: Secondary Status: Chronic Qualifiers: Esophagitis presence: esophagitis presence not specified Qualified Code(s) : K21.9 - Gastro-esophageal reflux disease without esophagitis (5) HTN (hypertension) Priority: Secondary Status: Chronic Qualifiers: Hypertension type: essential hypertension Qualified Code(s): I10 - Essential (primary) hypertension (6) HLD (hyperlipidemia) Priority: Secondary Status: Chronic Qualifiers: Hyperlipidemia type: pure hypercholesterolemia Qualified Code(s): E78.00 - Pure hypercholesterolemia, unspecified; E78.0 - Pure hypercholesterolemia (7) DVT prophylaxis Priority: Secondary Status: Inactive - Discharge Medications Home Medications: Albuterol Sulfate [Albuterol Inhaler] 2 puff IH QID PRN 04/28/17 [History] Ammonium Lactate [Luz-Hydrolac] 1 appl TP DAILY 04/28/17 [History] Aspirin Enteric Coated [Aspirin EC] 81 mg PO DAILY 04/28/17 [History] Atorvastatin [Lipitor] 40 mg PO HS 04/28/17 [History] Budesonide/Formoterol 160/4.5 [Symbicort 160/4.5] 2 puff IH BIDR 04/28/17 [ History] Calcipotriene [Dovonex] 1 appl TP BID 04/28/17 [History] Clobetasol Propionate 0.05% [Temovate] 1 appl TP DAILY 04/28/17 [History] Ergocalciferol (VITAMIN D2) [Vitamin D2] 50,000 unit PO QWEEK 04/28/17 [History] Ipratropium/Albuterol Neb [Duoneb] 3 ml IH QID PRN 04/28/17 [History] Ipratropium/Albuterol Sulfate [Combivent Respimat Inhal [place]] 1 puff IH QID PRN 04/28/17 [History] Lidocaine 4% CRM (LMX) [Lmx 4] 1 appl TP BID 04/28/17 [History] Lisinopril 2.5 mg PO DAILY 04/28/17 [History] Metoprolol XL (24 HR) Succ [Toprol Xl] 25 mg PO DAILY 04/28/17 [History] Alvarez/Poly/[place] OINT [Triple Antibiotic Ointment] 1 appl TP DAILY 04/28/17 [History ] Omeprazole [PriLOSEC] 40 mg PO BID 04/28/17 [History] Pregabalin [Lyrica] 300 mg PO BID 04/28/17 [History] Allergies/Adverse Reactions: Allergies haloperidol [From Haldol] Adverse Reaction (Verified 04/28/17 15:15) Seizure morphine Adverse Reaction (Verified 04/28/17 15:15) Difficulty Breathing - Notes to Outpatient Provider Patient had iron deficiency anemia noted on the stay. His Hemoccult stool was negative. We would recommend endoscopic evaluation as an outpatient. Date of admission: 04/29/17 15:44 Primary care physician: PCP WILLARD Discharging clinician: Roger Llamas Anticipated date of discharge: 04/30/17 - Patient Status Disposition: Transfer [facility] Condition: Fair Functional capacity at discharge: independent ambulation Overall status at discharge: patient is progressing back to baseline - Discharge Instructions Instructions: Chest Pain (DC), Chronic Obstructive Pulmonary Disease (DC), Chronic Hypertension (DC) Follow Up With: NO,PCP [Primary Care Provider] - Additional Instructions: [facility] Please continue your home medications. Please return for any new or worsening symptoms. - Diet and Activity Activity: increase activity as tolerated Diet: low fat, low cholesterol, low salt diet Interval History: Patient seen and examined at bedside. Patient complains of some mild chronic back pain. He denies chest pain. Denies thoughts to harm himself or others. Hospital course: Mr. Corado is a 67 year old male with history of coronary artery disease, COPD presented with chest pain. Patient states that the pain radiated to the left arm. Patient had no EKG changes and negative troponins. Patient underwent cardiac stress testing that was negative. Of note there were reports of the patient expressing suicidal thoughts. When I discussed this with the patient he said he did several days prior to arrival but not at this time. Patient was evaluated by psychiatry who felt he was not suicidal and was okay to discharge. Patient will be discharged home in stable condition. - Time Spent with Patient Total time spent providing and/or coordinating discharge services: - Constitutional Vitals: Temp Pulse Resp BP Pulse Ox 97.7 F 73 16 140/68 90 04/30/17 11:36 04/30/17 11:36 04/30/17 11:36 04/30/17 11:36 04/30/17 11:36 General appearance: Present: cooperative, A&O X 3, pleasant, no acute distress, answers questions appropriately - Respiratory Respiratory exam: Present: CTAB. Absent: rales, rhonchi, wheezes - Cardiovascular Cardiovascular exam: Present: RRR. Absent: gallop, rubs, systolic murmur - GI/Abdominal GI/Abdominal exam: Present: normal bowel sounds, soft. Absent: distended, tenderness - Extremities Exam Extremities exam: Present: pedal edema, warm. Absent: tenderness - Neurological Exam Neurological exam: Present: alert, CN II-XII intact, oriented X3, no focal deficits <Sue,Paul P - Last Filed: 05/01/17 17:19> Date of Encounter: 05/01/17 Procedures/tests Complete & Pending: Procedures Performed prior 72 hours Category Date Time Status CT head/brain wo con [CT] Stat Cat Scan 05/01/17 01:23 Draft Date of admission: 04/29/17 15:44 Primary care physician: PCP NO Consults: 04/30/17 15:59 Consult to Cardiology [CONS] Routine Comment: Consulting Provider: Cardiology Yumiko Reason for Consult: Positive stress test Call Completed: Yes Hospital course: Mr. Corado is a 67 year old male - Time Spent with Patient Total time spent providing and/or coordinating discharge services: - Constitutional Vitals: Temp Pulse Resp BP Pulse Ox 98.0 F 76 20 126/78 94 05/01/17 08:00 05/01/17 08:00 05/01/17 08:00 05/01/17 08:00 05/01/17 08:00 - Attending Attestation I examined this patient and my medical decision-making was reviewed with the HEALTH AND HUMAN PERFORMANCE PROFESSOR/PA/Advanced Practice Nurse/Resident Physician. I agree with the documented findings, disposition and treatment plan as described except to the extent set forth below. patient d/c today note started yesterday
[2017-04-30] MEDS: Nitroglycerin 0.4 MG TAB.SUBL SL PRN ×2 (15:43→16:13)
--- NOTE | 2017-04-30 15:51 | Nuclear Medicine Stress Report ---
Regadenoson Nuclear 2 day Name: Abdoul Corado Date of Study: 04/29/2017 Date: 1950 Ht: 73.0 in Medical Record#: [id number] Age: 67 Wt: 175.0 lb Gender: Male Order #: [id number] Location: [facility] Room: [facility] Supervising Provider: Emanuel Styles CNP Reading Physician: Carmen Brandt DO Ordering Physician: Kim Gilbert CNP Primary Care Physician: [facility] Stress Technologist: Rodrigo Silva, SECURITIES TRADER, [facility] Log Sorting Supervisor: Rosalba Whelan Indications: Chest Pain Impression: Perfusion imaging demonstrates infarct with madelyn-infarct ischemia involving the inferior and inferolateral camacho. Pharmacologic ECG was negative for ischemia at the level of heart rate achieved. Gated EF = 55%. The LV is mildly dilated. There is evidence of TID. Findings communicated to ordering provider. History: Hypertension Hypercholesteremia History of Smoking Stress Test Summary: Stress Test Type: Pharmacologic Regadenoson 0.4mg/5ml given IV Baseline Information: Initial Heart Rate: 65 Blood Pressure: 112/62 Stress Information: Stress Time: 4 min 00 sec Test Terminated Due to (primary): As per protocol Maximum Blood Pressure: 90/50 Maximum Heart Rate: 77 Percent Maximum Heart Rate Achieved: 50 Double Product: 6930 METS Reached: 1 Symptoms: Lightheadness Nuclear Summary: SPECT myocardial perfusion imaging using Tc99m Sestamibi given intravenously was performed at rest and following cardiac stress testing. The resting images were obtained following initial dose of 10.4 mCi. Following stress an additional dose of 30.2 mCi was given at peak exercise or 30 seconds post regadenoson infusion. Medication Given: Time Medication Dose Units Route Findings: Stress Note * Resting ECG demonstrated normal sinus rhythm with early repolarization. * Pharmacologic stress ECG is negative for ischemia at level of heart rate achieved. * No arrhythmias were noted during stress. * Patient had no chest pain during stress. Hemodynamic responses * Normal hemodynamic responses to pharmacologic stress. Study Quality * Technically challenging study due to body habitus. Left Ventricle * LVEDV = Mildly dilated. TID * There is transient ischemic dilatation. TID ratio * TID ratio = 1.46. Lung Uptake * There is no evidence of increase lung uptake. PERFUSION * There is small sized, fixed perfusion defect involving the basal inferior and inferolateral wall. Wall motion is abnormal in this area representing infarct. * During stress there may be worsening of perfusion in the mid to distal inferior wall and mid inferolateral wall representing madelyn-infarct ischemia. Gated EF % * Gated EF = 55%. Updated by Carmen Brandt on 04/30/2017 3:42:27 PM electronically signed on 04/30/2017 3:47:13 PM with status of Final
--- NOTE | 2017-04-30 16:12 | Event Note ---
<Roger Llamas - Last Filed: 04/30/17 16:10> Date of Encounter: 04/30/17 Time of Encounter: 16:10 Patient was admitted to be discharged today pending a negative stress test. Unfortunately patient's stress test came back positive for myocardial ischemia, so the discharge has been canceled. The cardiology team and they will evaluate him in the morning. Patient will be kept nothing by mouth at midnight. <Paul Rogers P - Last Filed: 04/30/17 17:36> Date of Encounter: 04/30/17 I examined this patient and my medical decision-making was reviewed with the SIGN HANGER/PA/Advanced Practice Nurse/Resident Physician. I agree with the documented findings, disposition and treatment plan as described except to the extent set forth below. Cardiology input appreciated
[2017-04-30] MEDS: Benzonatate 100 MG CAPSULE PO PRN ×2 (16:13→22:02)
[2017-05-01] MEDS: *HR* OxyCODONE/APAP 5/325 TABLET PO PRN ×3 (00:38→13:49)
[2017-05-01] MEDS: Acetaminophen 325 MG TABLET PO PRN (03:27)
[2017-05-01] MEDS: Ipratropium/Albuterol Neb 3 ML IH SCH ×3 (03:38→11:09)
[2017-05-01 05:16] LABS: Eosinophils % 4.6 %
[2017-05-01 05:17] LABS: Basophils # 0.1 K/mcL (0.0-0.2); Basophils % 0.7 %; Eosinophils # 0.3 K/mcL (0.0-0.6); Hematocrit 32.7 % (37.5-50.1); Hemoglobin 9.1 g/dL (12.9-16.9); Immature Granulocytes % 0.3 % (0-4); Lymphocytes # 1.5 K/mcL (0.6-4.6); Lymphocytes % 20.7 %; Mean Corpuscular HGB Conc 27.8 g/dL (31.6-35.5); Mean Corpuscular Hemoglobin 19.3 pg (28.0-33.3); Mean Corpuscular Volume 69.4 fL (83.0-100.0); Mean Platelet Volume 9.6 fL (9.4-12.4); Monocytes # 0.9 K/mcL (0.0-1.3); Monocytes % 11.9 %; Neutrophils # 4.5 K/mcL (1.6-8.9); Platelet Count 325 K/mcL (140-400); Red Blood Count 4.71 M/mcL (4.19-5.50); Red Cell Distribution Width 21.3 % (11.5-14.5); Segmented Neutrophils % 61.8 %
[2017-05-01 05:27] LABS: BUN/Creatinine Ratio 16 (6-26); Blood Urea Nitrogen 15 mg/dL (8-26); Calcium 8.9 mg/dL (8.6-10.8); Carbon Dioxide 25 mEq/L (19-29); Chloride 109 mEq/L (98-109); Glucose 129 mg/dL (70-99); Magnesium 2.1 mg/dL (1.6-2.6); Osmolality,Calculated 291 (280-300); Potassium 4.2 mEq/L (3.5-4.5); Sodium 139 mEq/L (136-145); eGFR For African Americans > 60 (> 60); eGFR For Non-African Americans > 60 (> 60)
[2017-05-01] MEDS: *HR* Heparin 5,000 UNIT/ML VIAL SQ SCH (06:31)
[2017-05-01 07:34] LABS: Anisocytosis 1+ (Not Present); Hypochromasia Present (Not Present); Large Platelets Present (Not Present); Macrocytosis Present (Not Present); Microcytosis Present (Not Present); Platelet Estimate Normal (Normal)
[2017-05-01] MEDS: Budesonide/Formoterol 160/4.5 MDI IH SCH (07:40)
[2017-05-01 08:00] VITALS: BP 126/78
--- NOTE | 2017-05-01 08:55 | Cardiology Consult Note ---
Date of Encounter: 05/01/17 Time of Encounter: 08:49 Assessment and Plan (1) Abnormal stress test Current Visit: Yes Status: Acute Stress test reviewed with patient. Perfusion imaging demonstrates infarct with madelyn-infarct ischemia involving the inferior and inferiolateral camacho. Gated EF 55%. There was evidence of TID. TTE shows EF 55%-60%, mild LVH, mild diastolic dysfunction. Normal RV size and function. Mild MR I discussed LHC vs medical management. D/t patient not wanting to care for himself and take his medications he is not a good candidate for LHC. He reports WA recently at [facility] and was also recommended for medical management due to psychosocial issues. Medical management is recommended. Continue asa, statin, and bb. Add imdur. Patient voices understanding of plan. Follows with [facility] in [place]. Recommend close out-pt f/u. (2) CAD (coronary artery disease) Current Visit: Yes Status: Acute Reports he does not take his medications. Discussed importance of compliance with medications. Follows with sourcing specialist in [place]. Qualifiers: Coronary Disease-Associated Artery/Lesion type: [place] artery [place] vs. transplanted heart: [place] heart Associated angina: with unstable angina Qualified Code(s): I25.110 - Atherosclerotic heart disease of [place] coronary artery with unstable angina pectoris (3) Chest pain Current Visit: Yes Status: Resolved Qualifiers: Chest pain type: other chest pain Qualified Code(s): R07.89 - Other chest pain; R07.8 - Other chest pain Discussion w patient/family: The assessment and plan as outlined above was discussed with the patient and/or family members who expressed understanding and agreement. All questions were answered. Thank you for involving us in the care of your patient. Please call with any questions. History of Present Illness Consult date: 05/01/17 Requesting physician: Roger Llamas Consult reason: Abnormal stress test Chief complaint: Left arm pain History of present illness: Mr. Corado is a 67 year old male who presented from the psychiatric unit at the [facility] when he developed chest pain. He was being treated after a suicide attempt. He c/o intermittent left shoulder and arm pain that occurred at rest. The pain was sharp and shooting down his left arm. He reports intermittent pain over the last three months. Admits to left arm pain with exertion that is relieved with rest. Denies SOB or palpitation. Denies nausea, vomiting, or diaphoresis. He reports a history of CAD s/p 4 [place] and multiple PCI. [facility] He also has a history of HTN, HLD, COPD, IV drug use and GERD. He reports multiple suicide attempts throughout his life d/t severe depression and PTSD. 2 recent suicide attempts. He currently has a laceration on his left arm from recent attempt. He says he did it because he could not get help for his back pain. 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 He states he will not take his cardiac medications because he doesn't care about life. Patient also states his psych medications make him want to hurt himself, hurt someone else. He denies wanting to hurt himself or others at this time. Past Med Surg Social Fam HX - Past Medical History Medical history: COPD, coronary artery disease, GERD, hyperlipidemia, hypertension, myocardial infarction Psychiatric history: depression, previous psychiatric hospitalization - Past Surgical History Surgical History: angioplasty/stent (x2), orthopedic, other (Left shoulder surgery) - Social History Smoking Status: Current every day smoker Packs per day: 1 1/2 PPD Smokeless Tobacco Status: No Alcohol use: occasionally Drug use: marijuana - Family History Mother Race: Family Member Ethnicity: Non- Living Status: Age at : 69 Cause of : HD Hx Family Cardiac Disorders: Yes (HD) Hx Family Musculoskeletal Disorders: Yes (Degenerative disc disease) Father Race: Family Member Ethnicity: Non- Living Status: Age at : 83 Cause of : HD Hx Family Cardiac Disorders: Yes (HD, HTN, HLD) Brother Race: Family Member Ethnicity: Non- Living Status: Cause of : Unknown Sister Race: Family Member Ethnicity: Non- Living Status: Age at : 40 Cause of : DM complications Hx Family Endocrine Disorder: Yes (DM) Medications and Allergies Albuterol Sulfate [Albuterol Inhaler] 2 puff IH QID PRN 04/28/17 [History] Ammonium Lactate [Luz-Hydrolac] 1 appl TP DAILY 04/28/17 [History] Aspirin Enteric Coated [Aspirin EC] 81 mg PO DAILY 04/28/17 [History] Atorvastatin [Lipitor] 40 mg PO HS 04/28/17 [History] Budesonide/Formoterol 160/4.5 [Symbicort 160/4.5] 2 puff IH BIDR 04/28/17 [ History] Calcipotriene [Dovonex] 1 appl TP BID 04/28/17 [History] Clobetasol Propionate 0.05% [Temovate] 1 appl TP DAILY 04/28/17 [History] Ergocalciferol (VITAMIN D2) [Vitamin D2] 50,000 unit PO QWEEK 04/28/17 [History] Ipratropium/Albuterol Neb [Duoneb] 3 ml IH QID PRN 04/28/17 [History] Ipratropium/Albuterol Sulfate [Combivent Respimat Inhal [place]] 1 puff IH QID PRN 04/28/17 [History] Lidocaine 4% CRM (LMX) [Lmx 4] 1 appl TP BID 04/28/17 [History] Lisinopril 2.5 mg PO DAILY 04/28/17 [History] Metoprolol XL (24 HR) Succ [Toprol Xl] 25 mg PO DAILY 04/28/17 [History] Alvarez/Poly/Sonya OINT [Triple Antibiotic Ointment] 1 appl TP DAILY 04/28/17 [History ] Omeprazole [PriLOSEC] 40 mg PO BID 04/28/17 [History] Pregabalin [Lyrica] 300 mg PO BID 04/28/17 [History] Allergies haloperidol [From Haldol] Adverse Reaction (Verified 04/28/17 15:15) Seizure morphine Adverse Reaction (Verified 04/28/17 15:15) Difficulty Breathing All Systems Review: A 10-system review of systems was performed and is negative for pertinent findings except as documented above in the HPI. Physical Examination Vital Signs, Last 4 Hours Temp Pulse Resp BP Pulse Ox 05/01/17 08:00 98.0 F 76 20 126/78 94 General: Conversant, No Apparent Distress HEENT: Atraumatic, Normocephaly, Mucus Membranes Moist Neck: No JVD, Normal carotid pulses Cardiac: Reg Rate and Rhythm, Normal S1 and S2, No Murmur Lungs: Normal Breath Sounds, No Wheeze, Rales, Rhonchi Neuro: Alert and responsive, No focal deficits noted Abdomen: Soft, Non-Tender Skin: Other (psoriasis on BLE noted) Musculoskeletal: No Chest Wall Tenderness Extremities: No Clubbing, No Cyanosis, No Edema, Normal Pulses Results 05/01/17 04:33 05/01/17 04:33 Lab Results 04/30/17 05/01/17 05/01/17 07:56 04:33 04:33 WBC 7.2 7.2 Hgb 8.8 L 9.1 L Hct 31.7 L 32.7 L Plt Count 311 325 Sodium 139 Potassium 4.2 Chloride 109 Carbon Dioxide 25 BUN 15 Creatinine 0.92 Glucose 129 H Calcium 8.9 Magnesium 2.1 - Imaging and Cardiology Stress Test: report reviewed Echo: report reviewed - EKG Interpretation EKG results cardiology: personally reviewed Consult Discharge Plan - Plan Additional Instructions: [facility] Please continue your home medications. Please return for any new or worsening symptoms. Referrals: NO,PCP [Primary Care Provider] -
[2017-05-01] MEDS: Aspirin Enteric Coated 81 MG Tablet PO SCH (08:56)
[2017-05-01] MEDS: Pregabalin 75 MG CAPSULE PO SCH (08:56)
[2017-05-01] MEDS: Nicotine 14 MG PATCH.TD24 TD SCH ×2 (08:57→12:37)
[2017-05-01] MEDS: Metoprolol XL (24 HR) Succ 25 MG TAB.ER.24H PO SCH (08:57)
[2017-05-01] MEDS: Pantoprazole 40 MG VIAL IVP SCH (08:58)
[2017-05-01] MEDS: Neosporin OINT 15 GM TUBE TP SCH (09:05)
[2017-05-01] MEDS: Lidocaine 4% CREAM (LMX) 5 GM TP SCH (09:05)
[2017-05-01] MEDS: Ammonium Lactate 30 APPL/225 GM BOTTLE TP SCH (09:06)
[2017-05-01] MEDS ORDERED: Isosorbide MONOnitrate (24 HR) 30 MG TAB.ER.24H PO SCH (09:30)
--- NOTE | 2017-05-01 10:13 | Event Note ---
<Roger Llamas G - Last Filed: 05/01/17 10:12> Date of Encounter: 05/01/17 Time of Encounter: 10:12 Patient seen and examined at bedside. Patient had a positive stress test yesterday and was evaluated by cardiology today and after speaking with cardiology the patient stated that he would not be compliant with any new medication regimen therefore we will not perform a cardiac catheterization. Risks and benefits of this were discussed with the patient verbalized understanding. Patient will be discharged back to [facility] inpatient psychiatry. Of note patient had a fall last night in the bathroom. He states he hit the front of his head. On exam his head is atraumatic with no evidence of injury. Mental status is at baseline with no acute changes. Head CT performed was negative. Please refer to yesterday's discharge summary for complete discharge information. <Paul Rogers P - Last Filed: 05/01/17 17:20> Date of Encounter: 05/01/17 I examined this patient and my medical decision-making was reviewed with the [employer]/PA/Advanced Practice Nurse/Resident Physician. I agree with the documented findings, disposition and treatment plan as described except to the extent set forth below.
[2017-05-01] MEDS: Vancomycin 1,250 MG in D5% in Water 250 ML IVPB SCH (12:27)
[2017-05-01] MEDS ORDERED: Aminoglycoside Consult 1 EACH MC ONE (15:44)
== END 2017-05-01 15:45 | DRG 303 ==
LOC: EMEROO 14:01 → 3BNU 14:01
PROVIDERS: ADMIT Nurse Practitioner Family; ATTEND Registered Nurse